=== PATIENT | female | born 1985 | race Hispanic/Latino ===

== ENCOUNTER 2018-09-16 20:03 | Emergency (ER) | payer SELFPAY ==
[~2018-09-16] VITALS: Ht 154.9 cm; Wt 113.4 kg
[2018-09-16] MEDS ORDERED: TETANUS/DIPHTHERIA TOX ADULT 0.5 ML SYR IM ONE (21:00)
[2018-09-16 21:09] VITALS: BP 120/86
== END 2018-09-16 21:16 | disposition home or self-care (01) ==
LOC: ER 20:03
DX: S91.311A Laceration without foreign body, right foot, initial encounter (principal); W45.8XXA Other foreign body or object entering through skin, initial encounter; Y92.832 Beach as the place of occurrence of the external cause; E11.9 Type 2 diabetes mellitus without complications
CPT/HCPCS: 90471; 90714; 99282